=== PATIENT | female | born 1985 | race Caucasian/White ===

== ENCOUNTER 2019-09-13 14:04 | Emergency (ER) | payer SELFPAY ==
[~2019-09-13] VITALS: Ht 165.1 cm; Wt 69.0 kg
[2019-09-13 14:34] VITALS: BP 116/80
== END 2019-09-13 17:13 | disposition home or self-care (01) ==
LOC: ER 14:04
DX: N34.0 Urethral abscess (principal); Z88.2 Allergy status to sulfonamides
CPT/HCPCS: 99283

== ENCOUNTER 2020-12-24 08:03 | Emergency (ER) | payer MEDICAID ==
[~2020-12-24] VITALS: Ht 162.6 cm; Wt 70.0 kg
[2020-12-24 09:32] VITALS: BP 121/72
== END 2020-12-24 09:34 | disposition home or self-care (01) ==
LOC: ER 08:03
DX: F11.20 Opioid dependence, uncomplicated (principal); F17.200 Nicotine dependence, unspecified, uncomplicated; Z88.2 Allergy status to sulfonamides
CPT/HCPCS: 99283

== ENCOUNTER 2021-05-16 07:33 | Emergency (ER) | payer MEDICAID ==
[~2021-05-16] VITALS: Ht 162.6 cm; Wt 63.0 kg
[2021-05-16 07:46] VITALS: BP 110/59
[2021-05-16] MEDS ORDERED: ACETAMINOPHEN 325MG TABLET ONE (08:00)
== END 2021-05-16 11:00 | disposition left against medical advice (07) ==
LOC: ER 07:33
DX: Z53.21 Procedure and treatment not carried out due to patient leaving prior to being seen by health care provider (principal)